=== PATIENT | female | born 1950 | race African-American/Black ===

== ENCOUNTER 2024-12-29 20:04 | Emergency (ER) | payer OTHER ==
[2024-12-29] MEDS ORDERED: MORPHINE 2 MG/ML SYR ONE (20:41)
[2024-12-29] MEDS ORDERED: ONDANSETRON 4 MG/2 ML VIAL ONE ×2 (20:41→23:05)
--- NOTE | 2024-12-29 20:53 | RAD REPORT ---
EXAMINATION: Forearm Right VIEWS: Two views CLINICAL INDICATION: Female, 74 years old. PAIN COMPARISON: Displaced and comminuted distal radial fracture involving the metaphysis with intra-artic ular extension. There is approximately one half shaft width of volar and radial displacement. There is an ulnar styloid fracture as well. The elbow appears posteriorly dislocated. Small fragment present at may represent an olecranon fractu re. IMPRESSION: Significantly displaced distal radial fracture with intra-articular extension. Posterior elbow dislocation with possible olecranon fracture.
--- NOTE | 2024-12-29 20:53 | RAD REPORT ---
EXAMINATION: Humerus Right CLINICAL INDICATION: Female, 74 years old. PAIN RIGHT COMPARISON: No prior exam. IMPRESSION: Posterior elbow dislocation better visualized on the forearm radiograph. No right humerus fracture se en.
[2024-12-29] MEDS ORDERED: ETOMIDATE 20 MG/10 ML VIAL IV ONE (21:25)
--- NOTE | 2024-12-29 21:59 | RAD REPORT ---
EXAMINATION: Forearm Right VIEWS: Two views CLINICAL INDICATION: Female, 74 years old. post reduction COMPARISON: Same day radiograph IMPRESSION: Relocated right elbow. Improved alignment of the distal radial fracture as well though with still dorcas roximately one third shaft width of maximal displacement..
--- NOTE | 2024-12-29 22:25 | ER ---
Nurse's Notes [facility] Name: Chary Almanzar Age: 74 yrs Sex: Female : 1950 Arrival Date: 12/29/2024 Time: 20:04 Bed 4 Private MD: Diagnosis: Fall (on) (from) other stairs and steps;Displaced right radial fracture;Posterior Elbow Dislocation - reduction Presentation: 12/29 20:08 Chief complaint: Patient states: Pt arrived to ED via EMS w/ c/o of fall. Pt stated "i jordin was walking down the stairs and lost my balance and fell about six feet down the stairs". Pt also stated "fall happened today and my wrists broke my fall". Pt denies hitting head/ denies LOC. EMS stated 50 mcs of fentanyl given via IV prior to arrival to the ED. Pt stated 10/10 right wrist pain. Pt stated medical history of HTN and currently on metoprolol. Pt denies the use of blood thinners and states currently takes metoprolol. Swelling to pt right wrist noticed on assessment of RN Brianna. Pt currently in no signs of distress at this time. Coronavirus screen: Vaccine status: Patient reports receiving the 2nd dose of the covid vaccine. Patient reports receiving the 1st dose of the Covid vaccine. Client denies travel out of the [place] in the last 14 days. At this time, the client does not indicate any symptoms associated with coronavirus-19. Ebola Screen: No symptoms or risks identified at this time. Initial Sepsis Screen: Does the patient meet any 2 criteria? No. Patient's initial sepsis screen is negative. Does the patient have a suspected source of infection? No. Patient's initial sepsis screen is negative. Risk Assessment: Do you want to hurt yourself or someone else? Patient reports no desire to harm self or others. Onset of symptoms was December 29, 2024. Mechanism of Injury: Fall down 7 steps STATED BY THE PT. 20:08 Method Of Arrival: EMS: [place] [id number] 20:08 Acuity: DIPAK 4 ja5 Triage Assessment: 20:15 General: Appears in no apparent distress. uncomfortable, DUE TO PAIN STATED BY THE ja5 PT. Behavior is calm, cooperative, appropriate for age. Pain: Complains of pain in right wrist Pain currently is 10 out of 10 on a pain scale. level that patient reports is acceptable is 1 out of 10 on a pain scale. Quality of pain is described as aching, Pain began suddenly, Is continuous, Current management is with 50 MCS OF FENTANYL GIVEN VIA IV BY EMS PRIOR TO ARRIVAL TO THE ED STATED BY THE EMS. Neuro: No deficits noted. Prado Agitation-Sedation Scale (RASS): 0 - Alert and Calm Level of Consciousness is awake, alert, obeys commands, Oriented to person, place, time, situation, Appropriate for age Facial symmetry appears normal. Cardiovascular: No deficits noted. Cardiovascular: Capillary refill < 3 seconds Clubbing of nail beds is absent JVD is absent Patient's skin is warm and dry. Rhythm is sinus rhythm. Respiratory: No deficits noted. Airway is patent Trachea midline Respiratory effort is even, unlabored, Respiratory pattern is regular, symmetrical. GI: No deficits noted. : No deficits noted. Musculoskeletal: Capillary refill < 3 seconds, Bony deformity noted of right wrist Swelling present in right wrist Reports pain in right wrist Pain is 10 out of 10 on a pain scale. Injury Description: Deformity sustained to right wrist. Historical: - Allergies: 20:15 No Known Allergies; ja5 - Home Meds: 20:15 Metoprolol Tartrate Oral [Active]; ja5 - PMHx: 20:15 Hypertensive disorder; 5 - Immunization history:: Adult Immunizations up to date, Client reports receiving the 2nd dose of the Covid vaccine, STATED BY THE PT. - Infectious Disease History:: Denies. - Social history:: Smoking status: unknown. Screenin:20 [facility] ED Fall Risk Assessment (Adult) History of falling in the last 3 months, 5 including since admission Yes- single mechanical fall (1 pt) Confusion or Disorientation No (0 pts) Intoxicated or Sedated No (0 pts) Impaired Gait No (0 pts) Mobility Assist Device Used No (0 pt) Altered Elimination No (0 pt) Score/Fall Risk Level 0 - 2 = Low Risk Oriented to surroundings, Maintained a safe environment, Educated pt \\T\\ family on fall prevention, incl call for assistance when getting out of bed, Assessed \\T\\ reinforced patient's understanding of fall precautions, Hourly rounding (assess needs \\T\\ fall precautionary measures) done, Used ambulatory aids as needed (educated on \\T\\ assisted with), Used gait belt as appropriate. Abuse screen: Denies threats or abuse. Nutritional screening: No deficits noted. Tuberculosis screening: No symptoms or risk factors identified. 22:33 [place] [facility]allow Protocol Brief Cognitive Screen What is your name? Normal, Where are you ja5 right now? Normal, What year is it? Normal. Oral Mechanism Examination Facial Symmetry: Normal, Motion: Normal, Lip Closure: Normal, Oral Mechanism Result: Normal. 3 oz Water Swallow Challenge: Pt able to drink all water without stopping, coughing, choking or throat clearing: Yes Result: PASS. Assessment: 20:20 Reassessment: Patient appears in no apparent distress at this time. No changes from ja5 previously documented assessment. Patient and/or family updated on plan of care and expected duration. Pain level reassessed. Patient is alert, oriented x 3, equal unlabored respirations, skin warm/dry/pink. see triage note. General: Appears in no apparent distress. Neuro: No deficits noted. Prado Agitation-Sedation Scale (RASS): 0 - Alert and Calm. 21:08 Reassessment: Patient appears in no apparent distress at this time. No changes from ja5 previously documented assessment. Patient and/or family updated on plan of care and expected duration. Pain level reassessed. Patient is alert, oriented x 3, equal unlabored respirations, skin warm/dry/pink. General: Appears in no apparent distress. Neuro: No deficits noted. Prado Agitation-Sedation Scale (RASS): 0 - Alert and Calm Level of Consciousness is alert, obeys commands, Oriented to person, place, time, situation, Appropriate for age Facial symmetry appears normal. Cardiovascular: No deficits noted. Capillary refill < 3 seconds Clubbing of nail beds is absent JVD is absent Patient's skin is warm and dry. Rhythm is regular. Respiratory: No deficits noted. Airway is patent Trachea midline Respiratory effort is even, unlabored, Respiratory pattern is regular, symmetrical. 21:31 Reassessment: Patient appears in no apparent distress at this time. No changes from vc1 previously documented assessment. Patient and/or family updated on plan of care and expected duration. Pain level reassessed. Patient is alert, oriented x 3, equal unlabored respirations, skin warm/dry/pink. 21:38 Reassessment: Patient appears in no apparent distress at this time. No changes from ja5 previously documented assessment. Patient and/or family updated on plan of care and expected duration. Pain level reassessed. Patient is alert, oriented x 3, equal unlabored respirations, skin warm/dry/pink. General: Appears in no apparent distress. comfortable. Neuro: No deficits noted. Prado Agitation-Sedation Scale (RASS): -1 Drowsy Level of Consciousness is alert, obeys commands, Oriented to person, place, time, situation, Appropriate for age Facial symmetry appears normal. Respiratory: No deficits noted. Airway is patent Trachea midline Respiratory effort is even, unlabored, Respiratory pattern is regular, symmetrical. 21:39 Reassessment: Patient appears in no apparent distress at this time. No changes from ja5 previously documented assessment. Patient and/or family updated on plan of care and expected duration. Pain level reassessed. Patient is alert, oriented x 3, equal unlabored respirations, skin warm/dry/pink. Patient denies pain at this time. General: Appears in no apparent distress. comfortable. Neuro: No deficits noted. Prado Agitation-Sedation Scale (RASS): -2 Light sedation Level of Consciousness is obeys commands, Oriented to person, place, time, situation, Appropriate for age Facial symmetry appears normal. Respiratory: No deficits noted. Airway is patent Trachea midline Respiratory effort is even, unlabored, Respiratory pattern is regular, symmetrical. 21:40 Reassessment: Patient appears in no apparent distress at this time. No changes from ja5 previously documented assessment. Patient and/or family updated on plan of care and expected duration. Pain level reassessed. Patient denies pain at this time. General: Appears in no apparent distress. comfortable. Pain: Denies pain. Neuro: Prado Agitation-Sedation Scale (RASS): -3 Moderate Sedation Level of Consciousness is obeys commands, lethargic, Oriented to person, place, time, situation, Facial symmetry appears normal. Respiratory: No deficits noted. Airway is patent Trachea midline Respiratory effort is even, unlabored, Respiratory pattern is regular, symmetrical. 21:44 Reassessment: Patient appears in no apparent distress at this time. No changes from ja5 previously documented assessment. Patient and/or family updated on plan of care and expected duration. Pain level reassessed. Patient is alert, oriented x 3, equal unlabored respirations, skin warm/dry/pink. Patient denies pain at this time. General: Appears in no apparent distress. comfortable. Neuro: Prado Agitation-Sedation Scale (RASS): -3 Moderate Sedation Level of Consciousness is obeys commands, lethargic, Oriented to person, place, time, situation, Facial symmetry appears normal. Respiratory: No deficits noted. Airway is patent Trachea midline Respiratory effort is even, unlabored, Respiratory pattern is regular, symmetrical. 21:49 Reassessment: Patient appears in no apparent distress at this time. No changes from [facility] previously documented assessment. Patient and/or family updated on plan of care and expected duration. Pain level reassessed. Patient is alert, oriented x 3, equal unlabored respirations, skin warm/dry/pink. General: Appears in no apparent distress. comfortable. Neuro: No deficits noted. Prado Agitation-Sedation Scale (RASS): -2 Light sedation Level of Consciousness is alert, obeys commands, Oriented to person, place, time, situation, Facial symmetry appears normal. Respiratory: No deficits noted. Airway is patent Trachea midline Respiratory effort is even, unlabored, Respiratory pattern is regular, symmetrical. 21:53 Reassessment: Patient appears in no apparent distress at this time. Patient and/or ja5 family updated on plan of care and expected duration. Pain level reassessed. Patient is alert, oriented x 3, equal unlabored respirations, skin warm/dry/pink. Patient denies pain at this time. Patient states feeling better. General: Appears in no apparent distress. comfortable. Pain: Denies pain. Neuro: Prado Agitation-Sedation Scale (RASS): -2 Light sedation Level of Consciousness is obeys commands, lethargic, Oriented to person, place, time, situation, Facial symmetry appears normal. Respiratory: No deficits noted. Airway is patent Trachea midline Respiratory effort is even, unlabored. 21:58 Reassessment: Patient appears in no apparent distress at this time. Patient and/or ja5 family updated on plan of care and expected duration. Pain level reassessed. Patient is alert, oriented x 3, equal unlabored respirations, skin warm/dry/pink. General: Appears in no apparent distress. comfortable. Pain: Denies pain. Neuro: No deficits noted. Prado Agitation-Sedation Scale (RASS): -2 Light sedation Level of Consciousness is obeys commands, lethargic, Oriented to person, place, time, situation, Facial symmetry appears normal, Pupils are PERRLA. Respiratory: No deficits noted. Airway is patent Trachea midline Respiratory effort is even, unlabored, Respiratory pattern is regular, symmetrical. 22:03 Reassessment: Patient appears in no apparent distress at this time. Patient is alert, ja5 oriented x 3, equal unlabored respirations, skin warm/dry/pink. General: Appears in no apparent distress. comfortable. Neuro: Prado Agitation-Sedation Scale (RASS): -1 Drowsy Level of Consciousness is awake, obeys commands, Oriented to person, place, time, situation, Appropriate for age Facial symmetry appears normal. Respiratory: No deficits noted. Airway is patent Trachea midline Respiratory effort is even, unlabored, Respiratory pattern is regular, symmetrical. 22:08 General: Appears in no apparent distress. comfortable. Pain: Denies pain. Neuro: No ja5 deficits noted. Prado Agitation-Sedation Scale (RASS): -1 Drowsy Level of Consciousness is awake, obeys commands, Oriented to person, place, time, situation, Appropriate for age Facial symmetry appears normal. Respiratory: No deficits noted. Airway is patent Trachea midline Respiratory effort is even, unlabored, Respiratory pattern is regular, symmetrical. 22:13 Reassessment: Patient appears in no apparent distress at this time. Patient and/or ja5 family updated on plan of care and expected duration. Pain level reassessed. Patient denies pain at this time. Patient states feeling better. Patient states symptoms have improved. General: Appears in no apparent distress. comfortable. Pain: Denies pain. Neuro: No deficits noted. Prado Agitation-Sedation Scale (RASS): -1 Drowsy. Respiratory: No deficits noted. Airway is patent Trachea midline Respiratory effort is even, unlabored, Respiratory pattern is regular, symmetrical. 22:18 Reassessment: Patient appears in no apparent distress at this time. No changes from ja5 previously documented assessment. Patient and/or family updated on plan of care and expected duration. Pain level reassessed. Patient is alert, oriented x 3, equal unlabored respirations, skin warm/dry/pink. Patient denies pain at this time. Patient states feeling better. Patient states symptoms have improved. General: Appears in no apparent distress. comfortable. Pain: Denies pain. Neuro: No deficits noted. Prado Agitation-Sedation Scale (RASS): -1 Drowsy Level of Consciousness is awake, obeys commands, Oriented to person, place, time, situation, Appropriate for age Facial symmetry appears normal. Respiratory: No deficits noted. Airway is patent Trachea midline Respiratory effort is even, unlabored, Respiratory pattern is regular, symmetrical. 22:23 Reassessment: Patient appears in no apparent distress at this time. No changes from ja5 previously documented assessment. Patient and/or family updated on plan of care and expected duration. Pain level reassessed. Patient is alert, oriented x 3, equal unlabored respirations, skin warm/dry/pink. Patient denies pain at this time. Patient states feeling better. Patient states symptoms have improved. General: Appears in no apparent distress. comfortable. Pain: Denies pain. Neuro: No deficits noted. Prado Agitation-Sedation Scale (RASS): -1 Drowsy Level of Consciousness is awake, alert, obeys commands, Oriented to person, place, time, situation, Appropriate for age Facial symmetry appears normal. Respiratory: No deficits noted. Airway is patent Trachea midline Respiratory effort is even, unlabored, Respiratory pattern is regular, symmetrical. 22:28 Reassessment: Patient appears in no apparent distress at this time. No changes from ja5 previously documented assessment. Patient and/or family updated on plan of care and expected duration. Pain level reassessed. Patient is alert, oriented x 3, equal unlabored respirations, skin warm/dry/pink. Patient denies pain at this time. Patient states feeling better. Patient states symptoms have improved. General: Appears in no apparent distress. comfortable. Pain: Denies pain. Neuro: No deficits noted. Prado Agitation-Sedation Scale (RASS): -1 Drowsy Level of Consciousness is awake, obeys commands, Oriented to person, place, time, situation, Appropriate for age Facial symmetry appears normal, Pupils are PERRLA. Respiratory: No deficits noted. Airway is patent Trachea midline Respiratory effort is even, unlabored, Respiratory pattern is regular, symmetrical. 22:33 Reassessment: Patient appears in no apparent distress at this time. No changes from ja5 previously documented assessment. Patient and/or family updated on plan of care and expected duration. Pain level reassessed. Patient is alert, oriented x 3, equal unlabored respirations, skin warm/dry/pink. PT BACK TO BASELINE Patient denies pain at this time. Patient states feeling better. Patient states symptoms have improved. Critical care time stopped, patient has stabilized. General: Appears in no apparent distress. comfortable, Behavior is calm, cooperative, appropriate for age. Pain: Denies pain. Neuro: No deficits noted. Prado Agitation-Sedation Scale (RASS): 0 - Alert and Calm Level of Consciousness is awake, alert, obeys commands, Oriented to person, place, time, situation, Appropriate for age. Cardiovascular: No deficits noted. Capillary refill < 3 seconds Clubbing of nail beds is absent JVD is absent Patient's skin is warm and dry. Rhythm is regular. Respiratory: No deficits noted. Airway is patent Trachea midline Respiratory effort is even, unlabored, Respiratory pattern is regular, symmetrical. 22:44 Reassessment: Patient appears in no apparent distress at this time. No changes from ja5 previously documented assessment. Patient and/or family updated on plan of care and expected duration. Pain level reassessed. Patient is alert, oriented x 3, equal unlabored respirations, skin warm/dry/pink. Patient states feeling better. Patient states symptoms have improved. General: Appears in no apparent distress. comfortable, Behavior is calm, cooperative, appropriate for age. Neuro: No deficits noted. Prado Agitation-Sedation Scale (RASS): 0 - Alert and Calm Level of Consciousness is awake, alert, obeys commands, Oriented to person, place, time, situation, Appropriate for age Facial symmetry appears normal. Cardiovascular: No deficits noted. Respiratory: No deficits noted. Airway is patent Trachea midline Respiratory effort is even, unlabored, Respiratory pattern is regular, symmetrical. 23:00 Reassessment: Patient appears in no apparent distress at this time. No changes from ja5 previously documented assessment. Patient and/or family updated on plan of care and expected duration. Pain level reassessed. Patient is alert, oriented x 3, equal unlabored respirations, skin warm/dry/pink. Patient states feeling better. Patient states symptoms have improved. Pain: Complains of pain in right wrist Pain currently is 2 out of 10 on a pain scale. level that patient reports is acceptable is 2 out of 10 on a pain scale. Neuro: No deficits noted. Prado Agitation-Sedation Scale (RASS): 0 - Alert and Calm Level of Consciousness is awake, alert, obeys commands, Oriented to person, place, time, situation, Appropriate for age Facial symmetry appears normal, Pupils are PERRLA, Pupil Size: 2. Cardiovascular: No deficits noted. Capillary refill < 3 seconds Clubbing of nail beds is absent JVD is absent Patient's skin is warm and dry. Rhythm is regular. Respiratory: No deficits noted. Airway is patent Trachea midline Respiratory effort is even, unlabored, Respiratory pattern is regular, symmetrical. Vital Signs: 20:08 BP 177 / 88; Pulse 61; Resp 22; Temp 98.1; Pulse Ox 100% on R/A; Weight 61.69 kg; ja5 Height 5 ft. 7 in. ; Pain 10/10; 20:49 BP 186 / 74; Pulse 66; Resp 22; Pulse Ox 100% on R/A; Pain 10/10; ja5 21:08 BP 167 / 70; Pulse 66; Resp 18; Temp 98; Pulse Ox 100% on 2 lpm NC; Pain 0/10; ja5 21:24 BP 166 / 68; Pulse 60; Resp 15; Pulse Ox 100% on 2 lpm NC; Pain 0/10; ja5 21:30 BP 160 / 69; Pulse 62; Resp 12; Pulse Ox 100% ; vc1 21:38 BP 160 / 69; Pulse 69; Resp 16; Pulse Ox 100% on 2 lpm NC; Pain 0/10; ja5 21:39 BP 176 / 82; Pulse 72; Resp 16; Pulse Ox 100% on 2 lpm NC; Pain 0/10; ja5 21:40 BP 193 / 92; Pulse 67; Resp 17; Pulse Ox 100% on 2 lpm NC; Pain 0/10; ja5 21:44 BP 186 / 80; Pulse 61; Resp 16; Pulse Ox 100% on 2 lpm NC; Pain 0/10; ja5 21:49 BP 197 / 81; Pulse 68; Resp 17; Pulse Ox 100% on 2 lpm NC; Pain 0/10; ja5 21:53 BP 194 / 79; Pulse 63; Resp 16; Pulse Ox 100% on 2 lpm NC; Pain 0/10; ja5 21:58 BP 184 / 76; Pulse 67; Pulse Ox 100% on 2 lpm NC; Pain 0/10; ja5 22:03 BP 187 / 86; Pulse 62; Resp 16; Pulse Ox 100% ; Pain 0/10; ja5 22:08 BP 185 / 76; Pulse 62; Resp 16; Pulse Ox 100% on 2 lpm NC; Pain 0/10; ja5 22:13 BP 192 / 82; Pulse 71; Resp 16; Pulse Ox 100% on 2 lpm NC; Pain 0/10; ja5 22:18 BP 187 / 78; Pulse 69; Resp 16; Pulse Ox 100% on 2 lpm NC; Pain 0/10; ja5 22:23 BP 187 / 78; Pulse 69; Resp 17; Pulse Ox 100% on 2 lpm NC; Pain 0/10; ja5 22:28 BP 192 / 82; Pulse 63; Resp 16; Pulse Ox 100% ; Pain 0/10; ja5 22:33 BP 189 / 93; Pulse 63; Temp 98; Pulse Ox 100% on 2 lpm NC; Pain 0/10; ja5 22:44 BP 188 / 82; Pulse 66; Resp 16; Pulse Ox 100% on R/A; Pain 2/10; ja5 22:55 BP 178 / 78; Pulse 67; Resp 26; Pulse Ox 100% on NC; Pain 2/10; ja5 23:00 BP 176 / 82; Pulse 66; Resp 16; Temp 98; Pulse Ox 100% on R/A; Pain 2/10; 5 20:08 Body Mass Index 21.30 (61.69 kg, 170.18 cm) ja5 20:08 Pain Scale: Adult ja5 20:49 Pain Scale: Adult ja5 21:08 Pain Scale: Adult ja5 21:24 Pain Scale: Adult ja5 21:38 Pain Scale: Adult ja5 21:39 Pain Scale: Adult ja5 21:40 Pain Scale: Adult ja5 21:44 Pain Scale: Adult ja5 21:49 Pain Scale: Adult ja5 21:53 Pain Scale: Adult ja5 21:58 Pain Scale: Adult ja5 22:03 Pain Scale: Adult ja5 22:08 Pain Scale: Adult ja5 22:13 Pain Scale: Adult ja5 22:18 Pain Scale: Adult ja5 22:23 Pain Scale: Adult ja5 22:28 Pain Scale: Adult ja5 22:33 Pain Scale: Adult ja5 22:44 Pain Scale: Adult ja5 22:55 Pain Scale: Adult ja5 23:00 Pain Scale: Adult ja5 Vitals: 21:08 Cardiac Rhythm Assessment Regular. ja5 21:24 Cardiac Rhythm Assessment Regular. ja5 21:38 Cardiac Rhythm Assessment Regular. ja5 21:39 Cardiac Rhythm Assessment Regular. ja5 21:40 Cardiac Rhythm Assessment Regular. ja5 21:44 Cardiac Rhythm Assessment Regular. ja5 21:49 Cardiac Rhythm Assessment Regular. ja5 21:53 Cardiac Rhythm Assessment Regular. ja5 21:58 Cardiac Rhythm Assessment Regular. ja5 22:03 Cardiac Rhythm Assessment Regular. ja5 22:08 Cardiac Rhythm Assessment Regular. ja5 22:13 Cardiac Rhythm Assessment Regular. ja5 22:18 Cardiac Rhythm Assessment Regular. ja5 22:23 Cardiac Rhythm Assessment Regular. ja5 22:28 Cardiac Rhythm Assessment Regular. ja5 22:33 Cardiac Rhythm Assessment Regular. ja5 22:44 Cardiac Rhythm Assessment Regular. ja5 22:55 Cardiac Rhythm Assessment Regular. ja5 23:00 Cardiac Rhythm Assessment Regular. ja5 [place] Coma Score: 21:08 Eye Response: spontaneous(4). Motor Response: obeys commands(6). Verbal Response: ja5 oriented(5). Total: 15. 21:08 Eye Response: spontaneous(4). Motor Response: obeys commands(6). Verbal Response: ja5 oriented(5). Total: 15. 21:24 Eye Response: spontaneous(4). Motor Response: obeys commands(6). Verbal Response: ja5 oriented(5). Total: 15. 21:38 Eye Response: spontaneous(4). Motor Response: obeys commands(6). Verbal Response: ja5 oriented(5). Total: 15. 21:39 Eye Response: to voice(3). Motor Response: obeys commands(6). Verbal Response: ja5 oriented(5). Total: 14. 21:40 Eye Response: to voice(3). Motor Response: obeys commands(6). Verbal Response: ja5 oriented(5). Total: 14. 21:44 Eye Response: to voice(3). Motor Response: obeys commands(6). Verbal Response: ja5 oriented(5). Total: 14. 21:49 Eye Response: to voice(3). Motor Response: obeys commands(6). Verbal Response: ja5 oriented(5). Total: 14. 21:53 Eye Response: to voice(3). Motor Response: obeys commands(6). Verbal Response: ja5 oriented(5). Total: 14. 21:58 Eye Response: to voice(3). Motor Response: obeys commands(6). Verbal Response: ja5 oriented(5). Total: 14. 22:03 Eye Response: to voice(3). Motor Response: obeys commands(6). Verbal Response: ja5 oriented(5). Total: 14. 22:08 Eye Response: to voice(3). Motor Response: obeys commands(6). Verbal Response: ja5 oriented(5). Total: 14. 22:13 Eye Response: to voice(3). Motor Response: obeys commands(6). Verbal Response: ja5 oriented(5). Total: 14. 22:18 Eye Response: to voice(3). Motor Response: obeys commands(6). Verbal Response: ja5 oriented(5). Total: 14. 22:23 Eye Response: to voice(3). Motor Response: obeys commands(6). Verbal Response: ja5 oriented(5). Total: 14. 22:28 Eye Response: to voice(3). Motor Response: obeys commands(6). Verbal Response: ja5 oriented(5). Total: 14. 22:33 Eye Response: spontaneous(4). Motor Response: obeys commands(6). Verbal Response: ja5 oriented(5). Total: 15. 22:44 Eye Response: spontaneous(4). Motor Response: obeys commands(6). Verbal Response: ja5 oriented(5). Total: 15. 22:44 Eye Response: spontaneous(4). Motor Response: obeys commands(6). Verbal Response: ja5 oriented(5). Total: 15. 22:55 Eye Response: spontaneous(4). Motor Response: obeys commands(6). Verbal Response: ja5 oriented(5). Total: 15. 23:00 Eye Response: spontaneous(4). Motor Response: obeys commands(6). Verbal Response: ja5 oriented(5). Total: 15. ED Course: 20:07 Patient arrived in ED. vc1 20:07 [facility]C [facility]. kb 20:07 Dustin Hyatt MD is Attending Physician. kb 20:07 Brianna Vivar is Primary Nurse. ja5 20:15 Triage completed. ja5 20:15 Arm band placed on right wrist. Patient placed in an exam room, on surveillance monitor, on ja5 pulse oximetry. 20:20 No apparent distress. Awaiting radiology results. ja5 20:20 Patient has correct armband on for positive identification. Bed in low position. Side ja5 rails up X2. pt family at the bedside. Provided Education on: poc= xray see orders. Client placed on continuous cardiac and pulse oximetry monitoring. NIBP monitoring applied. Pulse ox on. NIBP on. Warm blanket given. 20:20 No provider procedures requiring assistance completed. Inserted saline lock: 22 gauge ja5 in left antecubital area, using aseptic technique. ,using aseptic technique. placed by ems prior to arrival to ed Accessed Clean \\T\\ dry. Dressing intact. Flushes easily. Maintain EMS IV. Dressing intact. Site clean \\T\\ dry. Flushed with 10 mL NS. Patient maintains SpO2 saturation greater than 95% on room air. 20:42 Forearm Right XRAY In Process Unspecified. EDMS 20:42 Humerus Right XRAY In Process Unspecified. EDMS 21:08 No apparent distress. Resting quietly. ja5 21:08 Patient has correct armband on for positive identification. Fall risk band placed. Bed ja5 in low position. Call light in reach. Side rails up X2. Provided Education on: Conscious Sedation. Client placed on continuous cardiac and pulse oximetry monitoring. NIBP monitoring applied. school bus monitor on. Pulse ox on. NIBP on. SUCTION/ CRASH / DEFIB PADS/ OXYGEN / AIRWAY ALL PRESENT AT THE PT BEDSIDE. NO CO2 MONITORING PRESNT IN HOPITAL PER ANDREA CORTEZ. / PLANT TECHNICAL SPECIALIST MADE AWARE . RT MADE AWARE WELL. Consent for conscious sedation explained by staff, explained by physician, SIGNED BY PT SISTER HARRIET JENNINGS AT THIS TIME. PT GIVEN 4MG MORPHINE PRIOR TO OBTAINED CONSENT. PT UNABLE TO SIGNS AT THIS TIME. PT ALERT AND ORIENTATED TIMES 4 AND CURRENTLY IN NO SIGNS OF DISTRESS. PT AUTHORIZED SISTER TO SIGN CONSENT. MD HYATT AND SUNI POND MADE AWARE. PT CONSENT ALSO SIGNED BY MD HYATT AND DANA LITTLE WITNESS. PT CONSENT FORM PLACED IN PT CHART.. 21:08 Oxygen administration via nasal cannula PER MD HYATT VERBAL ORDER FOR CONSCIOUS ja5 SEDATION. Suctioned AT THE BEDSIDE. 21:08 Assisted provider with: 2108: VERBALIZED TO DANA LITTLE TO PREPARE PT FOR CONSCIOUS ja5 SEDATION. 21:24 No apparent distress. Resting quietly. ja5 21:26 Assisted provider with: PRE PROCEDURAL EKG PERFORMED AT THIS TIME BY DANA LITTLE AND HANDED ja5 TO SUNI POND AT THIS TIME BY DANA LITTLE. PLANT TECHNICAL SPECIALIST VERBALIZED UNDERSTANDING. 21:34 Assisted provider with: RT CURRENTLY AT THE BEDSIDE. ja5 21:36 No apparent distress. Resting quietly. ja5 21:36 Assisted provider with: CONSCIOUS SEDATION PER MD HYATT AND SUNI POND CURRENTYL AT THE [facility] BEDSIDE ALONG WITH RT/ DANA LITTLE AND DANA BUTTERFIELD FOR ASSISTANCE. 21:36 Assisted provider with: RT X2/ MD HYATT / SUNI POND / DANA BUTTERFIELD AND DANA LITTLE AT THE [facility] BEDSIDE . 21:38 No apparent distress. Resting quietly. ja5 21:38 Assisted provider with: TIMEOUT PERFORMED AT THIS TIME WITH PLANT TECHNICAL SPECIALIST/ MD HYATT AND DANA LITTLE. ja5 RIGHT PT, RIGHT PROCEDURE/ AND RIGHT LOCTION VERIFIED AT THIS TIME. 21:39 No apparent distress. Resting quietly. ja5 21:39 Assisted provider with: 10 MG IV ETOMIDATE PUSHED AT THIS TIME PER MD VERBAL ORDER. ja5 CONSCIOUS SEDATION PROCEDURE STARTED. 21:39 Assisted provider with: CONSCIOUS SEDATION PROCEDURE STARTED AT THIS TIME. MD AND PLANT TECHNICAL SPECIALIST ja5 MANIPULATION OF PT UPPER EXTREMITY STARTED. 21:40 No apparent distress. Resting quietly. Appears to be sleeping. ja5 21:40 Assisted provider with: MANIPULATION OF PT UPPER EXTREMITY STOPPED/ COMPLETED AT THIS [facility] TIME BY MD AND PLANT TECHNICAL SPECIALIST STATED BY MD HYATT AND SUNI POND. PT TOLERATED WELL. PROCEDURAL STOP TIME AT THIS TIME. PT CURRENTLY IN NO SIGNS OF DISTRESS. 21:41 No apparent distress. Resting quietly. Appears to be sleeping. XRAY CALLED AT THIS TIME ja5 PER MD HYATT VERBAL ORDER. 21:41 Assisted provider with: XRAY CALLED AT THIS TIME BY RN. ja5 21:43 No apparent distress. Resting quietly. ja5 21:43 Assisted provider with: ULNAR GUTTER LONG SPLINT APPLLIED TO PT RIGHT ARM AT THIS TIME ja5 BY SUNI POND WITH THE ASSISTANCE OF DANA BUTTERFIELD AT THE BEDSIDE . PT TOLERATED WELL AND CURRENTLY IN NO SIGN OF DISTRESS. PT SLING ALSO APPLIED TO PT BY DANA MENDEZ. 21:44 No apparent distress. [facility]ing quietly[facility] Awaiting for [facility]-ray. ja5 21:44 Assisted provider with: XRAY CURRENTLY AT THE BEDSIDE. ja5 21:49 No apparent distress. Appears restless. ja5 21:53 No apparent distress. Appears restless. ja5 21:55 Forearm Right XRAY In Process Unspecified. EDMS 21:58 No apparent distress. Resting quietly. ja5 22:03 No apparent distress. Resting quietly. ja5 22:08 No apparent distress. Resting quietly. No apparent distress. ja5 22:08 Assisted provider with: SUNI POND CURRENTLY AT THE BEDSIDE SPEAKING WITH PT. PLANT TECHNICAL SPECIALIST MADE [facility] AWARE OF PT BP 185/76 VIA FACE TO FACE BY DANA LITTLE. BP STATED "THE PATIENT HAS A HISTORY OF HYPERTENSION AND SHE IS NOT SYMPTOMATIC". NO NEW ORDERS AT THIS TIME. PT VSS AND CURRENTLY IN NO SIGNS OF DISTRESS. 22:18 No apparent distress. Resting quietly. ja5 22:23 No apparent distress. Resting quietly. ja5 22:33 Assisted provider with: PT BACK TO BASELINE MENTAL STATUS AT THIS TIME. PT FAM AT THE [facility] BEDSIDE. PT ALERT AND ORIENTATED TIMES 4 AND PT CURRENTLY IN NO SIGNS OF DISTRESS. PT DENIES PAIN AT THIS TIME. PT VSS. SUNI POND MADE AWARE AND VERBALIZED UNDERSTANDING. 22:40 Assisted provider with: DANA LITTLE AMBULATES PT AT THIS TIME. PT TOLERATED WELL AND [facility] PRESENTS WITH STEADY GAIT WITH ASSISTANCE OF DANA LITTLE. PLANT TECHNICAL SPECIALIST MADE AWARE. 22:57 Patient maintains SpO2 saturation greater than 95% on room air. ja5 23:00 IV discontinued, intact, bleeding controlled, No redness/swelling at site. Pressure 5 dressing applied. Administered Medications: 20:54 Drug: morphine IVP or IV 4 mg IVP once over 4 mins Route: IVP; Infused Over: 4 mins; ja5 Site: left antecubital; 20:54 Drug: Ondansetron IVP 4 mg IVP once; over 2 minutes Route: IVP; Site: left antecubital; ja5 21:04 CANCELLED (Physician Discretion): [id number] mg IVP once kb 21:39 Drug: Etomidate IVP 10 mg IVP once {Note: 10 MG ETOMIDATE GIVEN BY DANA LITTLE VIA LEFT AC ja5 IV AT THIS TIME 2139 PER MD HYATT VERBAL ORDER PRE PROCEDURE .} Route: IVP; Site: left antecubital; 22:33 Follow up: Response: No adverse reaction jordin 23:15 Drug: HYDROcodone-acetaminophen PO 5 mg-325 mg 1 tabs PO once Route: PO; jordin 23:15 Follow up: Response: No adverse reaction jordin 23:15 Follow up: Response: No adverse reaction jordin Medication: 20:20 VIS not applicable for this client. jordin Outcome: 22:25 Discharge ordered by MD. [email or web address] 23:15 Discharged to home ambulatory, via wheelchair, PT WHEELED OUT BY DANA LITTLE ACCOMPANIED BY jordin PT SISTER IN LAW STATED BY THE PT 23:15 Condition: stable 23:15 Discharge instructions given to patient, family, PT AND PT FAMILY MEMBER VERBALIZED UNDERSTANDING OF CARE AND TEACHING. PT VSS AND PT IN NO SIGNS OF DISTRESS. PT DC PAPERWORK HANDED TO SISTER IN LAW AT THIS TIME BY DANA BUTTERFIELD . 23:59 Patient left the ED. jordin Signatures: Dispatcher [employer] EDSusan Monroe, NAEC KENZIE-Andrea Vargas RN RN vc1 Brianna Vivar
--- NOTE | 2024-12-29 22:26 | EDPHYS ---
Physician Documentation [facility]ly [facility] Name: Chary Almanzar Age: 74 yrs Sex: Female : 1950 Arrival Date: 12/29/2024 Time: 20:04 Bed 4 Private MD: ED Physician Dustin Hyatt HPI: 12/29 21:49 This 74 yrs old Female presents to ER via EMS with complaints of Fall Injury. kb 22:27 Patient is a 74-year-old female who presents for right wrist and elbow pain after a kb fall. States she slipped on a step just prior to arrival causing her to fall onto right arm. Denies any other pain, injury or trauma. Denies hitting head or LOC.. Historical: - Allergies: 20:15 No Known Allergies; ja5 - Home Meds: 20:15 Metoprolol Tartrate Oral [Active]; ja5 - PMHx: 20:15 Hypertensive disorder; ja5 - Immunization history:: Adult Immunizations up to date, Client reports receiving the 2nd dose of the Covid vaccine, STATED BY THE PT. - Infectious Disease History:: Denies. - Social history:: Smoking status: unknown. ROS: 21:26 Constitutional: As per HPI kb Exam: 21:26 Constitutional: This is a well developed, well nourished patient who is awake, alert, kb and in no acute distress. Head/Face: Normocephalic, atraumatic. ENT: Moist Mucous membranes Neck: Trachea midline and no cervical lymphadenopathy. Supple, full range of motion without nuchal rigidity, or vertebral point tenderness. No Meningismus. Chest/axilla: Normal chest wall appearance and motion. Cardiovascular: Regular rate Respiratory: Respirations even and unlabored. No increased work of breathing. Talking in full sentences Abdomen/GI: Soft, non-tender. No distention Back: No spinal tenderness. No costovertebral tenderness. Full range of motion. Skin: Warm, dry with normal turgor. Normal color. Neuro: Awake and alert, GCS 15, oriented to person, place, time, and situation. 21:26 Musculoskeletal/extremity: Extremities: grossly normal except: noted in the right elbow and right wrist: deformity, pain, tenderness, ROM: limited active range of motion, Circulation is intact in all extremities. Sensation intact. Weight bearing: able to fully bear weight, Vital Signs: 20:08 BP 177 / 88; Pulse 61; Resp 22; Temp 98.1; Pulse Ox 100% on R/A; Weight 61.69 kg; ja5 Height 5 ft. 7 in. ; Pain 10/10; 20:49 BP 186 / 74; Pulse 66; Resp 22; Pulse Ox 100% on R/A; Pain 10/10; ja5 21:08 BP 167 / 70; Pulse 66; Resp 18; Temp 98; Pulse Ox 100% on 2 lpm NC; Pain 0/10; ja5 21:24 BP 166 / 68; Pulse 60; Resp 15; Pulse Ox 100% on 2 lpm NC; Pain 0/10; ja5 21:30 BP 160 / 69; Pulse 62; Resp 12; Pulse Ox 100% ; vc1 21:38 BP 160 / 69; Pulse 69; Resp 16; Pulse Ox 100% on 2 lpm NC; Pain 0/10; ja5 21:39 BP 176 / 82; Pulse 72; Resp 16; Pulse Ox 100% on 2 lpm NC; Pain 0/10; ja5 21:40 BP 193 / 92; Pulse 67; Resp 17; Pulse Ox 100% on 2 lpm NC; Pain 0/10; ja5 21:44 BP 186 / 80; Pulse 61; Resp 16; Pulse Ox 100% on 2 lpm NC; Pain 0/10; ja5 21:49 BP 197 / 81; Pulse 68; Resp 17; Pulse Ox 100% on 2 lpm NC; Pain 0/10; ja5 21:53 BP 194 / 79; Pulse 63; Resp 16; Pulse Ox 100% on 2 lpm NC; Pain 0/10; ja5 21:58 BP 184 / 76; Pulse 67; Pulse Ox 100% on 2 lpm NC; Pain 0/10; ja5 22:03 BP 187 / 86; Pulse 62; Resp 16; Pulse Ox 100% ; Pain 0/10; ja5 22:08 BP 185 / 76; Pulse 62; Resp 16; Pulse Ox 100% on 2 lpm NC; Pain 0/10; ja5 22:13 BP 192 / 82; Pulse 71; Resp 16; Pulse Ox 100% on 2 lpm NC; Pain 0/10; ja5 22:18 BP 187 / 78; Pulse 69; Resp 16; Pulse Ox 100% on 2 lpm NC; Pain 0/10; ja5 22:23 BP 187 / 78; Pulse 69; Resp 17; Pulse Ox 100% on 2 lpm NC; Pain 0/10; ja5 22:28 BP 192 / 82; Pulse 63; Resp 16; Pulse Ox 100% ; Pain 0/10; ja5 22:33 BP 189 / 93; Pulse 63; Temp 98; Pulse Ox 100% on 2 lpm NC; Pain 0/10; ja5 22:44 BP 188 / 82; Pulse 66; Resp 16; Pulse Ox 100% on R/A; Pain 2/10; ja5 22:55 BP 178 / 78; Pulse 67; Resp 26; Pulse Ox 100% on NC; Pain 2/10; ja5 23:00 BP 176 / 82; Pulse 66; Resp 16; Temp 98; Pulse Ox 100% on R/A; Pain 2/10; ja5 20:08 Body Mass Index 21.30 (61.69 kg, 170.18 cm) ja5 20:08 Pain Scale: Adult ja5 20:49 Pain Scale: Adult ja5 21:08 Pain Scale: Adult ja5 21:24 Pain Scale: Adult ja5 21:38 Pain Scale: Adult ja5 21:39 Pain Scale: Adult ja5 21:40 Pain Scale: Adult ja5 21:44 Pain Scale: Adult ja5 21:49 Pain Scale: Adult ja5 21:53 Pain Scale: Adult ja5 21:58 Pain Scale: Adult ja5 22:03 Pain Scale: Adult ja5 22:08 Pain Scale: Adult ja5 22:13 Pain Scale: Adult ja5 22:18 Pain Scale: Adult ja5 22:23 Pain Scale: Adult ja5 22:28 Pain Scale: Adult ja5 22:33 Pain Scale: Adult ja5 22:44 Pain Scale: Adult ja5 22:55 Pain Scale: Adult ja5 23:00 Pain Scale: Adult ja5 Pfeifer Coma Score: 21:08 Eye Response: spontaneous(4). Motor Response: obeys commands(6). Verbal Response: ja5 oriented(5). Total: 15. 21:08 Eye Response: spontaneous(4). Motor Response: obeys commands(6). Verbal Response: ja5 oriented(5). Total: 15. 21:24 Eye Response: spontaneous(4). Motor Response: obeys commands(6). Verbal Response: ja5 oriented(5). Total: 15. 21:38 Eye Response: spontaneous(4). Motor Response: obeys commands(6). Verbal Response: ja5 oriented(5). Total: 15. 21:39 Eye Response: to voice(3). Motor Response: obeys commands(6). Verbal Response: ja5 oriented(5). Total: 14. 21:40 Eye Response: to voice(3). Motor Response: obeys commands(6). Verbal Response: ja5 oriented(5). Total: 14. 21:44 Eye Response: to voice(3). Motor Response: obeys commands(6). Verbal Response: ja5 oriented(5). Total: 14. 21:49 Eye Response: to voice(3). Motor Response: obeys commands(6). Verbal Response: ja5 oriented(5). Total: 14. 21:53 Eye Response: to voice(3). Motor Response: obeys commands(6). Verbal Response: ja5 oriented(5). Total: 14. 21:58 Eye Response: to voice(3). Motor Response: obeys commands(6). Verbal Response: ja5 oriented(5). Total: 14. 22:03 Eye Response: to voice(3). Motor Response: obeys commands(6). Verbal Response: ja5 oriented(5). Total: 14. 22:08 Eye Response: to voice(3). Motor Response: obeys commands(6). Verbal Response: ja5 oriented(5). Total: 14. 22:13 Eye Response: to voice(3). Motor Response: obeys commands(6). Verbal Response: ja5 oriented(5). Total: 14. 22:18 Eye Response: to voice(3). Motor Response: obeys commands(6). Verbal Response: ja5 oriented(5). Total: 14. 22:23 Eye Response: to voice(3). Motor Response: obeys commands(6). Verbal Response: ja5 oriented(5). Total: 14. 22:28 Eye Response: to voice(3). Motor Response: obeys commands(6). Verbal Response: ja5 oriented(5). Total: 14. 22:33 Eye Response: spontaneous(4). Motor Response: obeys commands(6). Verbal Response: ja5 oriented(5). Total: 15. 22:44 Eye Response: spontaneous(4). Motor Response: obeys commands(6). Verbal Response: ja5 oriented(5). Total: 15. 22:44 Eye Response: spontaneous(4). Motor Response: obeys commands(6). Verbal Response: ja5 oriented(5). Total: 15. 22:55 Eye Response: spontaneous(4). Motor Response: obeys commands(6). Verbal Response: ja5 oriented(5). Total: 15. 23:00 Eye Response: spontaneous(4). Motor Response: obeys commands(6). Verbal Response: ja5 oriented(5). Total: 15. Procedures: 21:45 Splinting: Splint applied to right arm using Orthoglass splint, applied by myself. kb Examined by me, post splint application: neurovascular intact, 2+ distal pulses palpable, brisk capillary refill noted, Patient tolerated well. Reduction: of the right elbow, using manipulation, Patient tolerated well. Post reduction film - reveals normal alignment. 21:49 Reduction: of the right wrist, using traction, manipulation, Patient tolerated well. kb Post reduction film - reveals improved alignment. MDM: 20:07 Medical Screening Exam initiated kb 20:55 Data reviewed: vital signs, nurses notes. Independent interpretation of the following kb test(s) in the Emergency Department X-Ray: My interpretation is distal radius fracture, dislocated elbow. 22:19 Differential diagnosis: contusion, fracture, sprain, dislocation. kb 22:27 Historians other than the Patient: EMS: [facility]. Counseling: I had a detailed kb discussion with the patient and/or guardian regarding the historical points, exam findings, and any diagnostic results supporting the discharge/admit diagnosis, radiology results, the need for outpatient follow up, a orthopedic surgeon, to return to the emergency department if symptoms worsen or persist or if there are any questions or concerns that arise at home. 12/29 20:07 Order name: Forearm Right XRAY; Complete Time: 20:55 kb 12/29 20:07 Order name: Humerus Right XRAY; Complete Time: 20:55 kb 12/29 21:41 Order name: Forearm Right XRAY; Complete Time: 22:01 kmf 12/29 20:56 Order name: Conscious Sedation; Complete Time: 22:07 kb 12/29 20:58 Order name: Sling; Complete Time: 22:07 kb 12/29 20:58 Order name: Splint; Complete Time: 22:07 kb Administered Medications: 20:54 Drug: morphine IVP or IV 4 mg IVP once over 4 mins Route: IVP; Infused Over: 4 mins; ja5 Site: left antecubital; 20:54 Drug: Ondansetron IVP 4 mg IVP once; over 2 minutes Route: IVP; Site: left antecubital; ja5 21:04 CANCELLED (Physician Discretion): [id number] mg IVP once kb 21:39 Drug: Etomidate IVP 10 mg IVP once {Note: 10 MG ETOMIDATE GIVEN BY DANA LITTLE VIA LEFT AC ja5 IV AT THIS TIME 2139 PER MD HYATT VERBAL ORDER PRE PROCEDURE .} Route: IVP; Site: left antecubital; 22:33 Follow up: Response: No adverse reaction ja5 23:15 Drug: HYDROcodone-acetaminophen PO 5 mg-325 mg 1 tabs PO once Route: PO; ja5 23:15 Follow up: Response: No adverse reaction ja5 23:15 Follow up: Response: No adverse reaction ja5 Disposition Summary: 12/29/24 22:25 Discharge Ordered Notes: Location: Home kb Condition: Stable kb Diagnosis - Fall (on) (from) other stairs and steps kb - Displaced right radial fracture kb - Posterior Elbow Dislocation - reduction kb Followup: kb - With: Emergency Department - When: As needed - Reason: Worsening of condition Followup: kb - With: Private Physician - When: 2 - 3 days - Reason: Recheck today's complaints, Continuance of care, Re-evaluation by your physician Discharge Instructions: - Discharge Summary Sheet kb - Radial Fracture kb - Cast or Splint Care, Adult, [id number] kb - Elbow Dislocation, [id number] kb Forms: - Medication Reconciliation Form kb - Antibiotic Education kb - Prescription Opioid Use kb - Patient Portal Instructions kb - Leadership Thank You Letter kb Prescriptions: - acetaminophen-codeine 300-30 mg Oral tablet - take 1 tablet ORAL route every 4 to 6 hours as needed for pain; 16 tablet; kb Refills: 0, Product Selection Permitted Signatures: Dispatcher [employer] EDSusan Monroe, KENZIE-C PAYROLL TECHNICIAN-CkBrianna Queen ja5 Corrections: (The following items were deleted from the chart) 20:08 20:08 Humerus Right+RAD.RAD.BRZ ordered. EDMS EDMS 21:04 21:02 Etomidate IVP 20 mg IVP once ordered. kb kb 21:54 21:44 Elbow Right 2 View+RAD.RAD.BRZ ordered. EDMS EDMS
[2024-12-29] MEDS ORDERED: HYDROCODONE/APAP 5/325 MG TAB ONE (23:16)
[2024-12-30 08:20] VITALS: O2SAT 100
[2024-12-30 08:23] VITALS: TEMP 98
[2024-12-30 08:48] VITALS: BP 176/82
== END 2024-12-29 23:59 | disposition home or self-care (01) ==
LOC: ER 20:04
PROC: 2W3CX1Z Immobilization of Right Lower Arm using Splint (ICD-10-PCS; principal; 2024-12-29)
PROC: 0PSHXZZ Reposition Right Radius, External Approach (ICD-10-PCS; 2024-12-29)
DX: S52.571A Other intraarticular fracture of lower end of right radius, initial encounter for closed fracture (principal); S53.124A Posterior dislocation of right ulnohumeral joint, initial encounter; W10.8XXA Fall (on) (from) other stairs and steps, initial encounter; Y93.9 Activity, unspecified; Y92.9 Unspecified place or not applicable; I10 Essential (primary) hypertension
CPT/HCPCS: 25605; 93005; 73090 ×2; 73060; 96375; 96374; 99285; J2270; J2405 ×2